=== PATIENT | female | born 1955 | race Caucasian/White ===

== ENCOUNTER 2021-03-15 11:42 | Inpatient (IN) | payer MEDICARE, OTHER ==
[~2021-03-15] VITALS: Ht 154.9 cm; Wt 96.4 kg
[~2021-03-15 11:42] MED LIST: B-121000 MCG PO; COREG12.5 MG PO; ELIQUIS 5MG PO; EVENING PRIMRO500 MG; K-DUR20 MEQ PO; KEPPRA 500MG500 MG PO; LANTUS SOLOS100 U/ML SQ; LASIX 40MG TABL40 MG PO; LIPITOR 10MG10 MG PO; LIPITOR20 MG PO; NORCO 325 MG-51 TAB PO; NORVASC 10MG10 MG PO; PRINIVIL40 MG PO; PROTONIX 40MG T40 MG PO; TYLENOL 500MG500 MG PO; VITAMIN D31000 I1 PO; ZOLOFT 100MG100 MG PO; ZOLOFT 50MG50 MG PO
[2021-03-15 13:15] VITALS: BP 165/59; PULSE 64; TEMP 97.7
--- NOTE | 2021-03-15 14:00 | NUR ---
PT IV REMOVED FROM RIGHT AC. CATH TIP WAS INTACT. PRESSURE DRESSING APPLIED.
--- NOTE | 2021-03-15 18:26 | NUR ---
PT STATES THAT SHE IS HAVING PAIN OF 5 OUT OF 10 IN HER RIGHT LOWER LEG. PT RUBBING LEG AND GRIMACING. REQUEST NORCO. MEDICATION ADMINISTERED PER ORDER. PT LAYING IN BED RESTING. STATES NO OTHER NEEDS AT THIS TIME. CALL LIGHT WITHIN REACH.
--- NOTE | 2021-03-15 20:20 | NUR ---
Patient is resting in bed with the lights off. Cooperative and with good mood. States she is happy that her seizures problem is under control and she has a lot of improvement in her right side. Alert and oriented x 4. VSS. Indicates no output of urine or BM. Assessment completed, medications provide. No further needs at this time. Call light within reach.
--- NOTE | 2021-03-15 23:19 | NUR ---
Patient complains of pain in her right leg and asked for tylenol. Provided.
[2021-03-16 05:51] VITALS: BP 171/46; PULSE 66; TEMP 98.1
--- NOTE | 2021-03-16 06:12 | NUR ---
PT asked for [place], rates pain 7. Provided. She has had an intermitent rest along the night related to the pain. Report will be given to day RN.
--- NOTE | 2021-03-16 06:39 | NUR ---
PT ASLEEP IN BED. CALL LIGHT WITHIN REACH.
--- NOTE | 2021-03-16 08:47 | NUR ---
OT WITH PT. PT OFF WITH WITH OT TO GYM FOR EVAULATION.
--- NOTE | 2021-03-16 09:09 | NUR ---
PT RETURNED TO FLOOR WITH OT. PT LAYING IN BED. PT STATES THAT SHE DOES NOT NEED ANYTHING AT THIS TIME. CALL LIGHT IS WITHIN REACH.
--- NOTE | 2021-03-16 09:52 | NUR ---
PT LAYING IN BED, FINISHED WITH BREAKFAST. STATES THAT SHE IS NOT HAVING ANY PAIN AT THIS TIME, "I JUST GOT A PILL NO TO LONG AGO." ASKED PT IF SHE WOULD LIKE TO RECEIVE HER FLU SHOT THIS AM, STATES THAT SHE WOULD. PT STATES THAT SHE DOES NOT NEED ANYTHING ELSE AT THIS TIME. CALL LIGHT IS WITHIN REACH.
--- NOTE | 2021-03-16 11:01 | NUR ---
Lamont met with the pt who stated her preference to return home once medically stable. The pt states she lives at home with spouse, Jomar, [phone] or [phone]. The pt reports she uses a cane and glucometer and is independent on all ADLs. The pt reports her PCP is Ag Olivarez in [place] and gets her medications from [facility]. No DPOA-HC and declined. PT is recommending HH. Pt lives far away from HH agencies that offer PT/OT services. LAMONT working on finding HH agency. DC plan: Home w/HH ?
--- NOTE | 2021-03-16 11:50 | NUR ---
AT BEDSIDE TO SEE PT. DR STATES THAT THERE WILL BE NO NEW CHANGES TO AYTHING AT THIS TIME. PT VERBALIZES UNDERSTANDING. PT DOES NOT HAVE ANY QUESTIONS FOR DR AT THIS TIME. PT REQUESTS NEW ICE WATER. GOT FOR PT AND CONFIRMED CALL LIGHT WITHIN REACH. PT DOES NOT STATE ANY OTHER NEEDS AT THIS TIME.
[2021-03-16 17:29] VITALS: BP 174/64; PULSE 71; TEMP 97.8
--- NOTE | 2021-03-16 18:13 | NUR ---
PT LAYING IN BED. FINISHED WITH DINNER. STATES THAT SHE DOES NOT NEED ANYTHIG AT THIS TIME. PT STATES THAT SHE IS NOT HAVING ANY PAIN. PT STATES THAT "TODAY WAS A GOOD DAY." CALL LIGHT IS WITHIN REACH.
--- NOTE | 2021-03-16 20:16 | NUR ---
ALERT AND OX4. DENIES SOA, CHEST PAIN OR DIZZY. PM MEDS GIVEN. DENIES PAIN AT THIS TIME. POC DISCUSSED. CALL LIGHT WI REACH. NEEDS MET.
[2021-03-17 05:12] VITALS: BP 204/68; PULSE 72; TEMP 98.1
--- NOTE | 2021-03-17 08:35 | NUR ---
Pt doing well this morning. She is up, dressed and has eaten breakfast. Pt has some complaints of pain in her back, reports just achy, PRN tylenol given. She also states she feels a little light headed. BP 199/61, medications given. Pt denies any other needs.
--- NOTE | 2021-03-17 08:40 | NUR ---
Pt working with PT at this time
--- NOTE | 2021-03-17 12:05 | NUR ---
Pt had intense therapy this morning to get all therapy in before noon so that she can go to dialysis. Pt having complaints of her leg bothering her, but denies the need for any pain medication. Pt moved to dialysis just before noon
[2021-03-17 12:21] LABS: BASO % 0.5 % (0.0-2.0); EOS # 0.2 K/mm3 (0.0-0.7); EOS % 2.6 % (0.0-4.0); GRAN # 6.5 K/mm3 (1.4-6.5); GRAN % 74.1 % (42.2-75.2); LYMPH # 1.1 K/mm3 (1.2-3.4); LYMPH % 12.6 % (20.0-51.0); MEAN CELL VOLUME 88 fl (80.0-100.0); MEAN CORPUSCULAR HGB CONC 33 g/dl (33.0-37.0); MEAN PLATELET VOLUME 11.5 fl (7.4-10.4); MONO # 0.8 K/mm3 (0.1-0.6); MONO % 9.3 % (1.7-9.3); PLATELET COUNT 198 K/mm3 (130-400); RED BLOOD COUNT 2.89 M/mm3 (4.10-5.30); REDCELL DISTRIBUTION WIDTH-CV 14.2 % (11.5-14.5)
[2021-03-17 12:22] LABS: HEMATOCRIT 25.3 % (37.0-47.0); HEMOGLOBIN 8.3 g/dl (12.5-16.0); MEAN CORPUSCULAR HEMOGLOBIN 29 pg (27-31)
[2021-03-17 12:35] LABS: ALBUMIN 2.3 gm/dL (3.4-4.8); CALCIUM 7.7 mg/dL (8.4-10.2); CREATININE, serum 2.62 mg/dL (0.57-1.11); PHOSPHOROUS 3.4 mg/dL (2.3-4.7); POTASSIUM 3.3 mmol/L (3.5-4.5)
[2021-03-17 15:27] VITALS: BP 193/81; PULSE 61; TEMP 97.6
--- NOTE | 2021-03-17 15:28 | NUR ---
PATIENT TOLERATED HER HD TX WITH 500 ML OF FLUID REMOVED. NEXT PLANNED HD TX ON Wednesday03/19/21 AFTER THERAPIES & LUNCH.
--- NOTE | 2021-03-17 20:22 | NUR ---
ALERT AND OX3. DENIES SOA, CHEST PAIN OR DIZZY. PAIN IN LOWER RT LEG, TYL GIVEN ALONG W ALL PM MEDS. PT TIRED FROM PT TODAY AND DIALYSIS. CALL LIGHT WI REACH. NEEDS MET.
--- NOTE | 2021-03-18 04:51 | NUR ---
Pt rested through the night without incident. Needs met. Call light wi reach. AM meds.
[2021-03-18 05:19] VITALS: BP 183/76; PULSE 89; TEMP 98.2
--- NOTE | 2021-03-18 11:49 | NUR ---
SW met with the patient to introduce oneself and follow up. The patient reports that she is hurting from therapy. She plans on relaxing some until her last therapy session of the day. She had no concerns for SW at this time.
--- NOTE | 2021-03-18 13:09 | NUR ---
Admission QIM scores were reviewed by the team. Code of 4 chosen for oral hygiene was determined by team discussion to be the most usual performance for this patient during the assessment period. Code of 4 chosen for toilet hygiene was determined by team discussion to be the most usual performance for this patient during the assessment period. Code of 4 chosen for toileting transfers was determined by team discussion to be the most usual performance for this patient during the assessment period. Code of 4 chosen for shower/bathe self was determined by team discussion to be the most usual performance before interventions for this patient during the assessment period. Code of 4 chosen for upper body dressing was determined by team discussion to be the most usual performance before interventions for this patient during the assessment period. Code of 4 chosen for lower body dressing was determined by team discussion to be the most usual performance for this patient during the assessment period. Code of 3 chosen for sit to lying was determined by team discussion to be the most usual performance before interventions for this patient during the assessment period. Code of 4 chosen for lying to sitting on side of bed was determined by team discussion to be the most usual performance for this patient during the assessment period. Code of 4 for sit to stand was determined by team discussion to be the most usual performance for this patient during the assessment period. Code of 4 for chair/bed to chair transfers was determined by team discussion to be the most usual performance for this patient during the assessment period.--PD Jd
--- NOTE | 2021-03-18 14:06 | NUR ---
Initial visit; Patent doing well and was receptive to prayer, visit and [employer] keeping her in [employer]'s prayers.
--- NOTE | 2021-03-18 14:18 | NUR ---
The IPR team has set a discharge date for this Wednesday, 03/18 with outpatient PT/OT, OT for driving. [facility] has the driving simulator. MARTHA met with the patient to update on the above. The patient is in agreement to the plan. She reports that she will update her . MARTHA informed her of the option of doing PT in [place] or in [place]. The patient reports that she would prefer to do both PT/OT in [place] at the [facility]. MARTHA contacted [facility] to schedule the appointments. The squash centre manager reports that she is with a patient right now, but call contact MARTHA back to schedule the appointments.
--- NOTE | 2021-03-18 14:50 | NUR ---
[facility] contacted MARTHA back. The patient was secured an outpatient PT appointment on 03/24 at 1300 and an OT appointment on 03/28 at 1430. MARTHA notifed the varnishing unit operator of the appointments. MARTHA will need to fax the orders to [facility].
[2021-03-18 17:08] VITALS: BP 149/55; PULSE 61; TEMP 97.8
--- NOTE | 2021-03-18 17:14 | NUR ---
PT PARTICIPATING IN ALL THERAPIES TODAY. A&O. VSS. UP SBA IN ROOM AND HALLS. TYLENOL GIVEN FOR LEG PAIN. PLAN FOR D/C ON TUESDAY 03/21. OUTPATIENT THERAPIES HAVE BEEN SCHEDULED.
[2021-03-19 05:27] VITALS: BP 164/44; BP 177/47; PULSE 62; TEMP 97.7
--- NOTE | 2021-03-19 07:11 | NUR ---
Report received from KARINA Dean. Patient is resting comfortably in bed. Call light and bedside table are within reach. Will continue to monitor patient throughout shift.
--- NOTE | 2021-03-19 12:00 | NUR ---
Patient left the floor to go to dialysis.
[2021-03-19 13:03] LABS: BASO # 0.1 K/mm3 (0.0-0.2); BASO % 0.6 % (0.0-2.0); EOS # 0.2 K/mm3 (0.0-0.7); EOS % 2.7 % (0.0-4.0); GRAN # 6.2 K/mm3 (1.4-6.5); GRAN % 71.8 % (42.2-75.2); LYMPH # 1.3 K/mm3 (1.2-3.4); MEAN CELL VOLUME 89 fl (80.0-100.0); MEAN CORPUSCULAR HGB CONC 32 g/dl (33.0-37.0); MEAN PLATELET VOLUME 11.5 fl (7.4-10.4); MONO # 0.8 K/mm3 (0.1-0.6); MONO % 8.7 % (1.7-9.3); PLATELET COUNT 217 K/mm3 (130-400); RED BLOOD COUNT 3.01 M/mm3 (4.10-5.30)
[2021-03-19 13:08] LABS: HEMATOCRIT 26.8 % (37.0-47.0); HEMOGLOBIN 8.6 g/dl (12.5-16.0); MEAN CORPUSCULAR HEMOGLOBIN 29 pg (27-31)
[2021-03-19 13:11] LABS: ALBUMIN 2.3 gm/dL (3.4-4.8); CALCIUM 7.7 mg/dL (8.4-10.2); CREATININE, serum 2.52 mg/dL (0.57-1.11); PHOSPHOROUS 3.3 mg/dL (2.3-4.7); POTASSIUM 3.6 mmol/L (3.5-4.5)
--- NOTE | 2021-03-19 15:54 | NUR ---
PATIENT TOLERATED HD TX WITH 700 ML OF FLUID. NEXT PLANNED HD TX ON Wednesday03/21/21 AFTER THERAPIES & LUNCH.
[2021-03-19 16:00] VITALS: BP 181/74; PULSE 67; TEMP 97.7
[2021-03-19 16:51] VITALS: BP 164/64; PULSE 64; TEMP 98
[2021-03-20 05:03] VITALS: BP 177/51; PULSE 66; TEMP 98.1
--- NOTE | 2021-03-20 05:50 | NUR ---
PATIENT CALM AND COOPERATIVE THROUGHOUT THE NIGHT. PATIENT STATES SHE IS SO HAPPY TO BE GOING HOME WEDNESDAY AND IS FEELING SO MUCH BETTER. NO ISSUES OVERNIGHT.
[2021-03-20 06:01] VITALS: BP 162/53
--- NOTE | 2021-03-20 07:08 | NUR ---
Report received from KARINA Franco. Patient is sleeping in bed. Call light and bedside table are within reach. Will continue to monitor patient throughout shift.
--- NOTE | 2021-03-20 10:36 | NUR ---
MARTHA met with the patient to present and review the IPR Team Conference Note. MARTHA confirmed the team's plan for a discharge tomorrow, 03/21, with outpatient PT/OT. The team is recommending a FWW. The patient is in agreement to the plan and getting a FWW from [facility]. MARTHA presented and read the IM form outloud to the patient. The patient verbalized understanding and signed the form. MARTHA provided her with a copy. MARTHA contacted and faxed and emailed the FWW order to Naveen at [facility]. Naveen reports that they will try and deliver the FWW today, if not today, tomorrow morning.
--- NOTE | 2021-03-20 13:34 | NUR ---
Ana, at [facility], reports that they are unable to deliver the walker today and that their food mobile driver will not be able to deliver the FWW until tomorrow afternoon. SW met with the patient to update. The patient reports that she and her can go to [facility] and crop picker the FWW on their way home tomorrow. SW notified Ana at [facility].
[2021-03-20 18:19] VITALS: BP 149/66; PULSE 64; TEMP 98.1
--- NOTE | 2021-03-20 21:00 | NUR ---
RESTING IN BED. MOD I IN ROOM. DENIES NEEDS AT THIS TIME. DIALYSIS TOMORROW. CONTINU K+ PROTOCOL.
[2021-03-21 05:12] VITALS: BP 165/54; PULSE 66; TEMP 98
--- NOTE | 2021-03-21 05:54 | NUR ---
PT REPORTED DID NOT SLEEP WELL IN ANTICIPATION OF GOING HOME TODAY.
[2021-03-21 09:38] LABS: EOS # 0.2 K/mm3 (0.0-0.7); EOS % 4.4 % (0.0-4.0); GRAN # 2.1 K/mm3 (1.4-6.5); GRAN % 54.6 % (42.2-75.2); LYMPH # 1.2 K/mm3 (1.2-3.4); LYMPH % 31.7 % (20.0-51.0); MEAN CELL VOLUME 91 fl (80.0-100.0); MEAN CORPUSCULAR HGB CONC 32 g/dl (33.0-37.0); MEAN PLATELET VOLUME 11.5 fl (7.4-10.4); MONO # 0.3 K/mm3 (0.1-0.6); MONO % 7.5 % (1.7-9.3); PLATELET COUNT 193 K/mm3 (130-400); RED BLOOD COUNT 2.76 M/mm3 (4.10-5.30); REDCELL DISTRIBUTION WIDTH-CV 16.3 % (11.5-14.5)
[2021-03-21 09:39] LABS: HEMATOCRIT 25.2 % (37.0-47.0); HEMOGLOBIN 8.1 g/dl (12.5-16.0); MEAN CORPUSCULAR HEMOGLOBIN 29 pg (27-31)
[2021-03-21 09:41] LABS: ALBUMIN 2.2 gm/dL (3.4-4.8); CALCIUM 7.6 mg/dL (8.4-10.2); CREATININE, serum 1.91 mg/dL (0.57-1.11); PHOSPHOROUS 2.4 mg/dL (2.3-4.7); POTASSIUM 3.1 mmol/L (3.5-4.5)
[2021-03-21] MEDS ORDERED: ELIQUIS 5MG PO (11:10)
[2021-03-21] MEDS ORDERED: COREG12.5 MG PO (11:11)
[2021-03-21] MEDS ORDERED: NORVASC 10MG10 MG PO (11:11)
[2021-03-21] MEDS ORDERED: LIPITOR20 MG PO (11:11)
[2021-03-21] MEDS ORDERED: LASIX 40MG TABL40 MG PO (11:12)
[2021-03-21] MEDS ORDERED: KEPPRA 500MG500 MG PO (11:12)
[2021-03-21] MEDS ORDERED: PRINIVIL40 MG PO (11:12)
[2021-03-21] MEDS ORDERED: PROTONIX 40MG T40 MG PO (11:26)
--- NOTE | 2021-03-21 11:51 | NUR ---
The patient is to discharge back home with her today, 03/21, with outpatient PT/OT at [facility]. SW faxed the patient's orders to [facility]. The patient plans on picking up her FWW from [facility] on the way home today. No additional needs at this time.
[2021-03-21 12:25] VITALS: BP 179/93; PULSE 64; TEMP 97.6
--- NOTE | 2021-03-21 12:26 | NUR ---
PATIENT TOLERATED HD TX WITH 500ML OF FLUID REMOVED. NEXT PLANNED HD TX ON Wednesday03/24/21 @ 1600 @ [facility] IN [place].
--- NOTE | 2021-03-21 13:53 | NUR ---
PT MET CRITERIA FOR DISCHARGE, VSS. PT HAD DIALYSIS TODAY. DIALYSIS PORT LEFT INTACT TO RIGHT CHEST FOR OUTPATIENT DIALYSIS. DISCHARGE INSTRUCTIONS REVIEWED, PT VERBALIZED UNDERSTANDING. PT AWARE OF F/U APPTS AND OF PRESCRIPTIONS TO TAKE OFF MAN. PT DC TO HOME VIA WHEELCHAIR ACCOMPANIED BY THIS NURSE.
== END 2021-03-21 13:55 | disposition home or self-care (01) | DRG 56 ==
PROVIDERS: Internal Medicine Nephrology; Registered Nurse; ADMIT Internal Medicine
PROC: 5A1D70Z Performance of Urinary Filtration, Intermittent, Less than 6 Hours Per Day (ICD-10-PCS; principal; 2021-03-17)
DX: I69.351 Hemiplegia and hemiparesis following cerebral infarction affecting right dominant side (principal); J18.9 Pneumonia, unspecified organism; N18.6 End stage renal disease; G93.49 Other encephalopathy; I12.0 Hypertensive chronic kidney disease with stage 5 chronic kidney disease or end stage renal disease; I48.20 Chronic atrial fibrillation, unspecified; D63.1 Anemia in chronic kidney disease; E11.22 Type 2 diabetes mellitus with diabetic chronic kidney disease; Z99.2 Dependence on renal dialysis; E87.6 Hypokalemia; R26.89 Other abnormalities of gait and mobility; R56.9 Unspecified convulsions; M10.9 Gout, unspecified; R29.6 Repeated falls; F32.A Depression, unspecified; M79.604 Pain in right leg; Z91.041 Radiographic dye allergy status; Z79.01 Long term (current) use of anticoagulants; Z73.6 Limitation of activities due to disability; Z79.899 Other long term (current) drug therapy; Z79.891 Long term (current) use of opiate analgesic; Z87.891 Personal history of nicotine dependence; Z82.69 Family history of other diseases of the musculoskeletal system and connective tissue
CPT/HCPCS: 99222-AI; 99232-AI; 99239; J1644; J1756; J7030; Q5105

== ENCOUNTER → 2021-04-15 | Outpatient (CLI) | payer MEDICARE, OTHER | LOC: COL.VAS 13:11 | DX: N18.4 Chronic kidney disease, stage 4 (severe) (principal); Z99.2 Dependence on renal dialysis ==

== ENCOUNTER → 2021-04-17 | Outpatient (CLI) | payer MEDICARE, OTHER | LOC: COL.RAD 10:00 | DX: I65.22 Occlusion and stenosis of left carotid artery (principal); I63.9 Cerebral infarction, unspecified | CPT/HCPCS: Q9967 ==

== ENCOUNTER 2021-05-13 11:03 | Day surgery (SDC) | payer MEDICARE, OTHER ==
[~2021-05-13] VITALS: Ht 154.9 cm; Wt 89.5 kg
[2021-05-13] MEDS ORDERED: SERTRALINE PO (11:47)
[2021-05-13] MEDS ORDERED: PANTOPRAZOLE PO (11:48)
[2021-05-13] MEDS ORDERED: REQUIP0.25 MG PO (11:53)
[2021-05-13] MEDS ORDERED: POTASSIUM CHLORIDE PO (11:54)
[2021-05-13] MEDS ORDERED: PRIMROSE OIL PO ×2 (11:54→11:55)
[2021-05-13 12:33] VITALS: BP 187/65; PULSE 63; TEMP 97.8
[2021-05-13 12:36] LABS: CALCIUM 8.8 mg/dL (8.4-10.2); CREATININE, serum 2.88 mg/dL (0.57-1.11); POTASSIUM 4.7 mmol/L (3.5-4.5)
[2021-05-13 16:25] VITALS: BP 155/59; PULSE 72; TEMP 98
[2021-05-13] MEDS ORDERED: NORCO 325 MG-51 TAB PO (16:34)
[2021-05-13 16:40] VITALS: BP 130/66; PULSE 70
[2021-05-13 16:55] VITALS: BP 131/57; PULSE 64
--- NOTE | 2021-05-13 17:39 | NUR ---
1625 PT RETURNED TO [facility] VIA CART. ALERT AND ORIENTED. MONITORS ATTACHED, INTERVALS AND ALARMS SET. DENIES PAIN OR NAUSEA. BG 106 SUGAR FREE SODA AND MUFFIN PROVIDED. 1640 PT TOLERATING FOOD AND DRINK WELL. VSS. 1655 PT DENIES ANY PAIN OR NAUSEA. REVIEWED DISCHARGE INSTRCUCTIONS AND EDUCATION PACKET, ANSWERED ALL QUESTIONS. INSTRUCTED PT TO HOLD ELIQUIS UNTIL SPEAKING WITH DR. BECERRA IN THE MORNING. INSTRUCTED PT TO MAKE F/U APPOINTMENT FOR 2 WEEKS. PT ALLOWED TO DRESS. 1735 PT TRANSFERED VIA WHEELCHAIR TO PERSONAL VEHICLE TO BE DRIVEN HOME BY SON.
== END 2021-05-13 17:35 | disposition home or self-care (01) ==
LOC: SDCO 11:03
PROVIDERS: Surgery
DX: E11.22 Type 2 diabetes mellitus with diabetic chronic kidney disease (principal); I12.0 Hypertensive chronic kidney disease with stage 5 chronic kidney disease or end stage renal disease; N18.6 End stage renal disease; Z99.2 Dependence on renal dialysis; E66.9 Obesity, unspecified; Z68.38 Body mass index [BMI] 38.0-38.9, adult; Z86.73 Personal history of transient ischemic attack (TIA), and cerebral infarction without residual deficits; Z79.01 Long term (current) use of anticoagulants; Z79.899 Other long term (current) drug therapy
CPT/HCPCS: J0360; J0690; J1644; J2704; J3010; J7120

== ENCOUNTER 2023-04-08 06:23 | Day surgery (SDC) | payer MEDICARE, OTHER ==
[~2023-04-08] VITALS: Ht 154.9 cm; Wt 76.4 kg
[~2023-04-08 06:23] MED LIST changes: +AURYXIA1 GM PO; +CATAPRES 0.1MG0.1 MG PO; +COREG 25MG25 MG/TAB PO; +LIPITOR 80MG80 MG PO; +LR 1,000 ML IV SCH; +MASON NATURAL2000 IU PO; +MINOXIDIL 2.5 PO; +MULTI VITAMINS1 TAB PO; +PANTOPRAZOLE PO; +PHOS LO PO; +POTASSIUM CHLORIDE PO; +PRIMROSE OIL PO; +PRINIVIL20 MG PO; +PROAIR HFA0.09 MG/AC IH; +REQUIP0.25 MG PO; +SERTRALINE PO
[2023-04-08] MEDS ORDERED: Morphine 4 MG/ML VIAL IV PRN (08:00)
[2023-04-08] MEDS ORDERED: hydrALAZINE 20 MG/ML 1 ML VIAL IV ONE (08:00)
[2023-04-08] MEDS ORDERED: HYDROmorphone 2 MG/1 ML VIAL IV PRN (08:00)
[2023-04-08] MEDS ORDERED: Ondansetron 4 MG/2 ML VIAL IV PRN ×2 (08:00→10:30)
[2023-04-08] MEDS ORDERED: Meperidine 50 MG/ML 1 ML VIAL IV PRN (08:00)
[2023-04-08 08:13] LABS: CREATININE, serum 5.31 mg/dL (0.57-1.11); POTASSIUM 5.1 mmol/L (3.5-4.5)
[2023-04-08] MEDS ORDERED: Lidocaine PF 2% (20 MG/ML) 5 ML VIAL ONE (08:13)
[2023-04-08] MEDS ORDERED: NS 10 ML IV ONE (08:14)
[2023-04-08 08:15] VITALS: BP 232/70; PULSE 62; TEMP 98.2
--- NOTE | 2023-04-08 08:30 | NUR ---
0751-CALL TO Earnest PEREZ CRNA TO BE NOTIFIED OF BLOOD PRESSURE. ORDERS RECEIVED. 08-PER ORDER HYDRALAZINE 10 MG IV GIVEN. 08-BP RECHECK 209/78. Earnest PEREZ CRNA NOTIFIED OF RECHECK. NO NEW ORDERS AT THIS TIME.
[2023-04-08] MEDS ORDERED: Lidocaine PF 2% (20 MG/ML) 10 ML POLY AMP IM ONE (08:54)
[2023-04-08] MEDS ORDERED: hydrALAZINE 20 MG/ML 1 ML VIAL ONE (08:56)
[2023-04-08] MEDS ORDERED: fentaNYL 50 MCG/ML 2 ML VIAL ONE (08:59)
[2023-04-08] MEDS ORDERED: Topical Skin Adhesive 1 EACH (1 ML) TOP ONE (09:14)
[2023-04-08] MEDS ORDERED: Thrombin Human (Recombinant) 5,000 UNITS VIAL TP ONE (09:45)
[2023-04-08 10:13] VITALS: BP 132/49; PULSE 78; TEMP 97.9
[2023-04-08 10:25] VITALS: BP 121/50; PULSE 72
[2023-04-08] MEDS ORDERED: Acetaminophen 325 MG TAB PO PRN (10:30)
[2023-04-08 10:40] VITALS: BP 139/52; PULSE 66
[2023-04-08 10:55] VITALS: BP 142/51; PULSE 66
[2023-04-08 11:10] VITALS: BP 145/58; PULSE 66
--- NOTE | 2023-04-08 11:15 | NUR ---
1013 RETURNS TO ROOM 8 PER CART. DROWSY, AROUSESES SPONTANEOUSLY WITH UNLABORED RESP. HOB ELEVATED 30 DEGREES. FAMILIARIZED WITH SURROUNDINGS. VITAL SIGNS OBTAINED. INCISION LEFT UPPER ARM INTACT, NO REDNESS OR DRAINAGE OBSERVED. THRILL PALPATED, BRUIT AUSCULTATED AV FISTULA SITE. DENIES DISCOMFORT. CALL LIGHT AT SIDE. IN ROOM 1025 LESS DROWSY. HOB ELEVATED 50 DEGREES. 1040 HOB ELEVATED 80 DEGREES. TOLERATES PO JUICE 1050 DISCHARGE INSTRUCTIONS REVIEWED. PATIENT AND VERBALIZE UNDERSTANDING. COPY PROVIDED IN DISCHARGE FOLDER 1105 SITS ON EDGE OF BED. DRESSES WITH ASSIST FROM
== END 2023-04-08 11:15 | disposition home or self-care (01) ==
LOC: SDCO 06:23
PROVIDERS: Surgery
DX: I12.0 Hypertensive chronic kidney disease with stage 5 chronic kidney disease or end stage renal disease (principal); N18.6 End stage renal disease; E11.22 Type 2 diabetes mellitus with diabetic chronic kidney disease; E66.9 Obesity, unspecified; Z79.01 Long term (current) use of anticoagulants; Z68.30 Body mass index [BMI] 30.0-30.9, adult
CPT/HCPCS: J0360; J0665; J0690; J1644; J2704; J3010; J7120